=== PATIENT | male | born 1955 | race African-American/Black ===

== ENCOUNTER 2021-02-19 17:51 | Emergency (ER) | payer MEDICAID ==
[~2021-02-19] VITALS: Ht 167.6 cm; Wt 98.6 kg
[2021-02-19] MEDS ORDERED: NO HOME MEDS (21:11)
[2021-02-19 21:34] LABS: BASOPHILS % (AUTO) 0.6 % (0-1); EOSINOPHILS # (AUTO) 0.1 X10'3 (0-0.9); EOSINOPHILS % (AUTO) 1.3 % (0-6); HEMATOCRIT 43.9 % (42.0-52.0); HEMOGLOBIN 14.7 g/dl (14.0-17.9); LYMPHOCYTES # (AUTO) 1.2 X10'3 (1.1-4.8); LYMPHOCYTES % (AUTO) 28.2 % (21-51); MEAN CORPUSCULAR HEMOGLOBIN 29.5 PG (27.0-31.0); MEAN CORPUSCULAR HGB CONC 33.6 g/dL (33.0-36.5); MEAN CORPUSCULAR VOLUME 87.7 FL (78-98); MEAN PLATELET VOLUME 8.2 FL (7.4-10.4); MONOCYTES # (AUTO) 0.6 X10'3 (0-0.9); MONOCYTES % (AUTO) 13.9 % (2-12); NEUTROPHILS # (AUTO) 2.4 X10'3 (1.8-7.7); PLATELET COUNT 359 X10'3 (140-440); RED CELL DISTRIBUTION WIDTH 13.8 % (11.5-14.5); WHITE BLOOD COUNT 4.2 X10'3 (4.5-11.0)
[2021-02-19 21:45] LABS: ANION GAP 10 (8-16); BLOOD UREA NITROGEN 12 MG/DL (7-18); BUN/CREATININE RATIO 10.9 (5.4-32.0); CHLORIDE 102 MMOL/L (99-107); GLUCOSE 108 MG/DL (70-104); POTASSIUM 3.9 MMOL/L (3.5-5.1); SODIUM 139 MMOL/L (135-145); TOTAL CARBON DIOXIDE 26.7 MMOL/L (24-32)
[2021-02-19 21:46] LABS: ALANINE AMINOTRANSFERASE 33 U/L (12-78); ALBUMIN 3.9 G/DL (3.4-5.0); ALKALINE PHOSPHATASE 100 IU/L (46-116); ASPARTATE AMINO TRANSFERASE 29 U/L (10-37); BILIRUBIN,TOTAL 0.8 MG/DL (0.1-1.0); CALCIUM 9.5 MG/DL (8.5-10.1); TOTAL PROTEIN 7.8 G/DL (6.4-8.2); eGFR 67 ML/MIN
[2021-02-19 21:55] LABS: ETHANOL < 0.010 GM/DL (0.0-0.010)
--- NOTE | 2021-02-20 03:13 | NUR ---
pt appears to be sleeping on [facility]
[2021-02-20 13:22] LABS: URINE AMPHETAMINE SCREEN POSITIVE (Neg); URINE BARBITUATE SCREEN NEGATIVE (Neg); URINE BENZODIAZEPINES SCREEN NEGATIVE (Neg); URINE CANNABINOID SCREEN NEGATIVE (Neg); URINE COCAINE SCREEN NEGATIVE (Neg); URINE METHADONE SCREEN NEGATIVE (Neg); URINE OPIATE SCREEN NEGATIVE (Neg); URINE PHENCYCLIDINE SCREEN NEGATIVE (Neg)
[2021-02-20 13:24] LABS: CLARITY,URINE SLIGHTLY CLOUDY (Clear); COLOR,URINE YELLOW (Yellow); GLUCOSE, URINE NEGATIVE (Neg); KETONES,URINE TRACE mg/dl (Neg); LEUKOCYTE ESTERASE ,URINE NEGATIVE (Neg); NITRITES, URINE NEGATIVE (Neg); OCCULT BLOOD,URINE NEGATIVE (Neg); PH,URINE 5.5 (4.8-8.0); PROTEIN,URINE TRACE mg/dl (Neg); UROBILINOGEN,URINE 0.2 E.U/dL (0.2-1.0)
[2021-02-20 13:42] LABS: UA COLLECTION TYPE VOIDED
[2021-02-20 13:45] LABS: MUCUS STRANDS MANY /LPF (Neg); SPERM MANY /HPF (NEGATIVE); SQUAMOUS EPITHELIAL CELL,UR FEW /LPF (FEW)
[2021-02-20 13:46] LABS: BACTERIA,URINE FEW /HPF (Neg); CAL OXALATE CRYSTALS FEW /HPF (NEGATIVE)
[2021-02-20 13:47] LABS: RBC,URINE 0-2 /HPF (0-2); WBC,URINE 0-4 /HPF (0-4)
[2021-02-20 14:35] VITALS: BP 170/90
--- NOTE | 2021-02-20 16:10 | NUR ---
[facility] EVAL AT BEDSIDE.
--- NOTE | 2021-02-20 17:32 | NUR ---
CALLED [facility] TO [facility] FOR PATIENT 1 HR WAIT TIME .
== END 2021-02-20 18:15 | disposition home or self-care (01) ==
LOC: ER 17:52
DX: F79 Unspecified intellectual disabilities (principal); Z20.822 Contact with and (suspected) exposure to COVID-19; F60.0 Paranoid personality disorder; F22 Delusional disorders; F15.90 Other stimulant use, unspecified, uncomplicated; F32.9 Major depressive disorder, single episode, unspecified; Z59.00 Homelessness unspecified
CPT/HCPCS: 36415; 80053; 80305; 80320; 81001; 84443; 85025; 87635; 99284; C9803

== ENCOUNTER 2021-03-01 11:31 | Emergency (ER) | payer MEDICAID ==
[~2021-03-01] VITALS: Ht 167.6 cm; Wt 100.0 kg
[~2021-03-01 11:31] MED LIST: NO HOME MEDS
[2021-03-01] MEDS ORDERED: LORazepam 1 MG tablet PO ONE ×2 (13:30→23:30)
--- NOTE | 2021-03-01 14:00 | NUR ---
Patient was brought in by EMS, triaged, then brought to bed 26 in overflow. The patient endorses audible hallucinations, paranoia, he believes people are trying to kill him. Patient denies H/I or S/I. Patient is from the [facility].
[2021-03-01 14:18] LABS: BASOPHILS % (AUTO) 0.5 % (0-1); EOSINOPHILS % (AUTO) 0.1 % (0-6); HEMATOCRIT 44.6 % (42.0-52.0); HEMOGLOBIN 15.1 g/dl (14.0-17.9); LYMPHOCYTES # (AUTO) 0.9 X10'3 (1.1-4.8); LYMPHOCYTES % (AUTO) 12.1 % (21-51); MEAN CORPUSCULAR HEMOGLOBIN 29.7 PG (27.0-31.0); MEAN CORPUSCULAR HGB CONC 33.8 g/dL (33.0-36.5); MEAN CORPUSCULAR VOLUME 87.9 FL (78-98); MEAN PLATELET VOLUME 8.6 FL (7.4-10.4); MONOCYTES # (AUTO) 0.9 X10'3 (0-0.9); MONOCYTES % (AUTO) 11.3 % (2-12); NEUTROPHILS # (AUTO) 5.9 X10'3 (1.8-7.7); PLATELET COUNT 294 X10'3 (140-440); RED BLOOD COUNT 5.07 X10'6 (4.70-6.10); RED CELL DISTRIBUTION WIDTH 13.7 % (11.5-14.5); WHITE BLOOD COUNT 7.7 X10'3 (4.5-11.0)
[2021-03-01 14:46] LABS: ALANINE AMINOTRANSFERASE 22 U/L (12-78); ALBUMIN 3.8 G/DL (3.4-5.0); ALBUMIN/GLOBULIN RATIO 0.9 (1.1-1.5); ALKALINE PHOSPHATASE 113 IU/L (46-116); ANION GAP 9 (8-16); ASPARTATE AMINO TRANSFERASE 24 U/L (10-37); BLOOD UREA NITROGEN 11 MG/DL (7-18); BUN/CREATININE RATIO 9.9 (5.4-32.0); CALCIUM 9.3 MG/DL (8.5-10.1); CHLORIDE 107 MMOL/L (99-107); CREATININE 1.11 MG/DL (0.60-1.10); GLUCOSE 102 MG/DL (70-104); POTASSIUM 4.2 MMOL/L (3.5-5.1); SODIUM 143 MMOL/L (135-145); TOTAL CARBON DIOXIDE 26.7 MMOL/L (24-32); TOTAL PROTEIN 8.1 G/DL (6.4-8.2); eGFR 81 ML/MIN
[2021-03-01 14:55] LABS: ETHANOL < 0.010 GM/DL (0.0-0.010)
[2021-03-01 14:58] LABS: CLARITY,URINE CLEAR (Clear); COLOR,URINE YELLOW (Yellow); GLUCOSE, URINE NEGATIVE (Neg); KETONES,URINE NEGATIVE (Neg); LEUKOCYTE ESTERASE ,URINE NEGATIVE (Neg); NITRITES, URINE NEGATIVE (Neg); OCCULT BLOOD,URINE TRACE-INTACT (Neg); PROTEIN,URINE TRACE mg/dl (Neg); UROBILINOGEN,URINE 0.2 E.U/dL (0.2-1.0)
[2021-03-01 15:02] LABS: UA COLLECTION TYPE CLN CATCH MIDSTREAM
[2021-03-01 15:03] LABS: BACTERIA,URINE NONE SEEN /HPF (Neg); MUCUS STRANDS FEW /LPF (Neg); SQUAMOUS EPITHELIAL CELL,UR NONE SEEN /LPF (FEW); WBC,URINE 0-4 /HPF (0-4)
[2021-03-01 15:04] LABS: SPERM FEW /HPF (NEGATIVE)
[2021-03-01 15:11] LABS: URINE AMPHETAMINE SCREEN POSITIVE (Neg); URINE BARBITUATE SCREEN NEGATIVE (Neg); URINE BENZODIAZEPINES SCREEN NEGATIVE (Neg); URINE CANNABINOID SCREEN NEGATIVE (Neg); URINE COCAINE SCREEN NEGATIVE (Neg); URINE METHADONE SCREEN NEGATIVE (Neg); URINE OPIATE SCREEN NEGATIVE (Neg); URINE PHENCYCLIDINE SCREEN NEGATIVE (Neg)
--- NOTE | 2021-03-01 15:34 | NUR ---
Patient approaches RN station and states "the people are almost here" and gestures toward the vents in the ceiling. Patient verbally reassured but declines food and rest.
--- NOTE | 2021-03-01 16:01 | NUR ---
Packet has been faxed to [facility].
[2021-03-01] MEDS ORDERED: GABA-534 PO (16:17)
[2021-03-01] MEDS ORDERED: BICT1TAB (16:17)
[2021-03-01] MEDS ORDERED: METO25TA6 (16:17)
[2021-03-01] MEDS ORDERED: FLO0.4C PO (16:17)
--- NOTE | 2021-03-01 16:23 | NUR ---
Patient still endorses audible hallucinations. He states he can hear people in the vents, they are trying to kill him. Patient admits to meth use this am.
--- NOTE | 2021-03-01 17:13 | NUR ---
Patient continues to stand near the nurses station. He exhibit paranoia still, he states he is afraid to go to where his bed is at.
[2021-03-01] MEDS ORDERED: OLANZapine 2.5MG tablet PO SCH ×2 (18:15→23:30)
[2021-03-01] MEDS ORDERED: metoprolol tartrate 50mg tablet PO ONE (18:15)
[2021-03-01] MEDS ORDERED: metoprolol tartrate 25mg tablet PO ONE (18:25)
--- NOTE | 2021-03-01 18:39 | NUR ---
The patient is sitting up by the nursing station and is very hypervigilant and guarded. He is refusing to return to his bed because he believes that people are coming out of the vents. He also is making paranoid statements that he believes people are wanting to kill him. He refused to use another bed and stated, "that bed has a spirit" He is very distracted by internal stimuli. He refused his dinner but denied that he feels his food is poisoned or contaminated in any way. His BP was elevated and spoke with PA regarding his BP and level of paranoia. Medications ordered and medication education provided to the patient.
--- NOTE | 2021-03-01 20:12 | NUR ---
The patient continues to be paranoid but appears less so. He is now eating and presents as less hypervigilant.
--- NOTE | 2021-03-01 22:18 | NUR ---
The patient is resting on the bed by the nursing station but he is awake
[2021-03-01] MEDS ORDERED: OLANZapine 2.5MG tablet PO ONE (23:30)
--- NOTE | 2021-03-02 00:01 | NUR ---
The patient has not been able to sleep. He is tossing and turning on his bed. He occasionally can be heard whispering to himself. MD made aware of patient continued psychotic symptoms and inability to sleep and orders received.
--- NOTE | 2021-03-02 01:11 | NUR ---
The patient is awake and at times whispering to himself
--- NOTE | 2021-03-02 02:37 | NUR ---
The patient continues to be talking to himself
--- NOTE | 2021-03-02 04:04 | NUR ---
The patient up to use the bathroom and now back to bed.
--- NOTE | 2021-03-02 06:20 | NUR ---
PATIENT RECEIVED SLEEPING ON HIS RIGHT SIDE IN BED THIS MORNING. RESPIRATIONS EVEN, UNLABORED. NO S/S OF DISTRESS. WILL CONTINUE TO MONITOR.
--- NOTE | 2021-03-02 08:30 | NUR ---
PATIENT APPROACHED THIS CLINICAL DATA MANAGEMENT DIRECTOR ENDORSING THAT THERE IS A KILLER HALF WAY IN THE WALL HAVING A CONVERSATION. PATIENT PRESENTS PARANOID OF RETURNING TO HIS ROOM. HE IS NOTED SITTING IN A CHAIR IN THE HALLWAY. BREAKFAST TRAY GIVEN. NO CHANGE AT THIS TIME.
--- NOTE | 2021-03-02 10:25 | NUR ---
PATIENT CONTINUES SITTING IN CHAIR IN THE HALLWAY AT THIS TIME. HE REFUSES TO RETURN TO HIS ROOM. HE IS QUIET AND APPROPRIATE. NO S/S OF DISTRESS.
--- NOTE | 2021-03-02 12:30 | NUR ---
PATIENT WAS OBSERVED AMBULATING WITH A 4WW TO THE BATHROOM WITH A SLIGHT LEFT-SIDED LIMP. PATIENT CONTINUES TO EXHIBIT PARANOIA, AFRAID TO RETURN TO HIS ROOM. HE CONTINUES QUIETLY SITTING IN THE HALLWAY. NO CHANGES AT THIS TIME.
--- NOTE | 2021-03-02 14:35 | NUR ---
PATIENT CONTINUES TO ENDORSE AUDITORY HALLUCINATIONS OF VOICES COMING THROUGH THE CEILING VENTS. HE ENDORSED HAVING ISSUES WITH HIS LEFT HIP SINCE 2011, STATING THAT HE NEEDS A TOTAL HIP REPLACEMENT. PATIENT SITTING IN THE HALLWAY WITH NO COMPLAINTS NOTED OR S/S OF DISTRESS.
--- NOTE | 2021-03-02 16:35 | NUR ---
PATIENT ASKED THIS CLINICAL STAFF EDUCATOR TO MOVE HIS BED TO THE FAR CORNER OF HIS ROOM TO BE AWAY FROM THE CEILING VENT. HE CONTINUES TO PRESENT WITH PARANOIA, ENDORSING THAT GANG MEMBERS ARE HERE IN THE HOSPITAL. HE WAS OBSERVED AMBULATING TO THE BATHROOM AND BACK TO HIS ROOM WITH A 4WW. PATIENT OBSERVED STARING AT THE VENT IN THE CEILING. NO S/S OF DISTRESS. WILL CONTINUE TO MONITOR.
--- NOTE | 2021-03-02 17:05 | NUR ---
ATTEMPTED TO CONTACT PATIENTS PRIMARY PHARMACY, [facility] TO RETRIEVE MED RECONCILIATION. FACILITY IS CLOSED ON THE WEEKENDS. WILL BE OPEN ON 03/03/21. PHONE NUMBER . PATIENT ENDORSED THAT HE TAKES BIKTARVY QDAY FOR HIV SUPPRESSION. UNABLE TO VERIFY WITH PATIENTS PHARMACY D/T CLOSED ON WEEKENDS. WILL NOTIFY ONCOMING RN.
[2021-03-02] MEDS ORDERED: emtricitabine/tenofovir 200mg/300mg tablet PO SCH ×2 (17:26→17:41)
[2021-03-02] MEDS: raltegravir 400mg tablet PO SCH ×2 (18:07→20:44)
[2021-03-02] MEDS: emtricitabine/tenofovir 200mg/300mg tablet PO SCH (18:08)
--- NOTE | 2021-03-02 18:38 | NUR ---
dfPatient is sleeping on his left side in bed. No distress noted. Q15 minute rounding for patient safety, in view from nurses station.
--- NOTE | 2021-03-02 19:39 | NUR ---
Patient is awake in bed, no distress.
[2021-03-02] MEDS ORDERED: metoprolol tartrate 50mg tablet PO SCH (20:00)
--- NOTE | 2021-03-02 20:03 | NUR ---
Patient remains sleeping. No distress noted.
[2021-03-02] MEDS: gabapentin 100mg capsule PO SCH (20:44)
--- NOTE | 2021-03-02 22:13 | NUR ---
Patient is sleeping on his left side. He talks in his sleep swearing.
--- NOTE | 2021-03-02 23:34 | NUR ---
Patient is sleeping, no distress.
--- NOTE | 2021-03-03 02:06 | NUR ---
Patient is sleeping quietly. No distress.
--- NOTE | 2021-03-03 03:46 | NUR ---
Patient continues to talk in his sleep, cussing at others.
--- NOTE | 2021-03-03 05:53 | NUR ---
Patient sleeping quietly. No distress noted.
--- NOTE | 2021-03-03 06:20 | NUR ---
PATIENT RECEIVED SLEEPING SUPINE IN BED UPON CHANGE OF SHIFT. RESPIRATIONS EVEN, UNLABORED. NO S/S OF DISTRESS. WILL CONTINUE TO MONITOR.
--- NOTE | 2021-03-03 08:30 | NUR ---
PATIENT OBSERVED SITTING QUIETLY IN BED EATING BREAKFAST AT THIS TIME. HE RECEIVED HIS MEDICATION WITH NO DIFFICULTY AND WAS COOPERATIVE WITH ASSESSMENT. NO CHANGE NOTED AT THIS TIME.
[2021-03-03] MEDS: gabapentin 100mg capsule PO SCH ×2 (09:17→20:18)
[2021-03-03] MEDS: raltegravir 400mg tablet PO SCH ×2 (09:17→20:22)
[2021-03-03] MEDS: emtricitabine/tenofovir 200mg/300mg tablet PO SCH (09:17)
[2021-03-03] MEDS ORDERED: metoprolol tartrate 50mg tablet PO ONE (09:20)
[2021-03-03] MEDS ORDERED: metoprolol tartrate 25mg tablet PO ONE (09:20)
--- NOTE | 2021-03-03 10:25 | NUR ---
PATIENT CONTINUES SLEEPING IN BED AT THIS TIME LYING ON HIS RIGHT SIDE. RESPIRATIONS EVEN, UNLABORED. NO S/S OF DISTRESS NOTED. WILL CONTINUE TO MONITOR.
--- NOTE | 2021-03-03 12:30 | NUR ---
PATIENT SLEEPING IN HIS ROOM AT THIS TIME. NO S/S OF DISTRESS OR CHANGES NOTED.
--- NOTE | 2021-03-03 14:25 | NUR ---
PATIENT NOTED TO BE SLEEPING ON HIS LEFT SIDE IN BED. RESPIRATIONS EVEN, UNLABORED. NO S/S OF DISTRESS. WILL CONTINUE TO MONITOR.
--- NOTE | 2021-03-03 16:30 | NUR ---
PATIENT OBSERVED AMBULATING TO THE RESTROOM WITH HIS 4WW. HE CONTINUES TO PRESENT POLITE AND CALM THROUGHOUT THE DAY. NO S/S OF RESPONDING TO IS. PATIENT RETREATED BACK TO HIS ROOM WHERE HE IS QUIETLY RESTING AT THIS TIME. NO COMPLAINTS NOTED.
--- NOTE | 2021-03-03 18:44 | NUR ---
Patient is sleeping on his left side. No distress. Frequent rounding for patient safety.
[2021-03-03] MEDS: metoprolol tartrate 25mg tablet PO SCH (20:19)
--- NOTE | 2021-03-03 20:33 | NUR ---
Patient awoke, he recognized this automobile service writer from previous noc shift. Patient complied with taking his medications. He immediately returned to sleep.
[2021-03-03] MEDS ORDERED: tamsulosin 0.4mg capsule PO SCH (21:00)
--- NOTE | 2021-03-03 23:00 | NUR ---
Patient is sleeping quietly in a supine position. Frequent rounding for patient safety.
--- NOTE | 2021-03-04 01:18 | NUR ---
Patient sleeping on right side. No distress noted.
--- NOTE | 2021-03-04 03:08 | NUR ---
Patient sleeps quietly, no distress.
--- NOTE | 2021-03-04 03:10 | NUR ---
Conchis houston in [facility] - 03/04/21 at 0310 by CHRISSY Patient in supine position, sleeping quietly.
--- NOTE | 2021-03-04 06:20 | NUR ---
PATIENT OBSERVED QUIETLY SLEEPING ON HIS LEFT SIDE AT SHIFT CHANGE. RESPIRATIONS EVEN, UNLABORED. NO S/S OF DISTRESS.
[2021-03-04 08:20] VITALS: BP_DIAS 90
[2021-03-04] MEDS: emtricitabine/tenofovir 200mg/300mg tablet PO SCH (08:28)
[2021-03-04 08:29] VITALS: BP_SYST 144
[2021-03-04] MEDS: metoprolol tartrate 25mg tablet PO SCH (08:29)
[2021-03-04] MEDS: gabapentin 100mg capsule PO SCH (08:29)
[2021-03-04] MEDS: raltegravir 400mg tablet PO SCH (08:29)
--- NOTE | 2021-03-04 08:30 | NUR ---
PATIENT AWOKEN TO HAVE VITAL SIGNS ASSESSED THIS MORNING. RTN MEDICATION GIVEN WITH NO DIFFICULTY. PATIENT WAS COOPERATIVE WITH ASSESSMENT. PATIENT CONTINUES TO PRESENT WITH PARANOIA OF BEING FOLLOWED. HE ENDORSED TO THIS PEDIATRIC DIETICIAN THAT HE IS STILL BEING FOLLOWED BUT FEELS SAFER BEING IN THE HOSPITAL. PATIENT REASSURED BY STAFF. NO S/S OF DISTRESS OR COMPLAINTS NOTED.
--- NOTE | 2021-03-04 09:58 | NUR ---
Met with patient in regards to substance use and to see if patient wanted resources for treatment options. Patient would like resources for outpatient services because he is not sure if he wants to stay in [facility]. I gave patient [facility] number and a resource guide. I also gave patient my card so he can call with any questions if needed.
--- NOTE | 2021-03-04 10:35 | NUR ---
PATIENT OBSERVED SLEEPING IN BED AT THIS TIME. NO COMPLAINTS OR S/S OF DISTRESS.
== END 2021-03-04 12:55 | disposition home or self-care (01) ==
LOC: ER 11:31
DX: F23 Brief psychotic disorder (principal); Z20.822 Contact with and (suspected) exposure to COVID-19; F22 Delusional disorders; F32.9 Major depressive disorder, single episode, unspecified; F15.90 Other stimulant use, unspecified, uncomplicated; Z59.00 Homelessness unspecified; Z88.1 Allergy status to other antibiotic agents; Z88.8 Allergy status to other drugs, medicaments and biological substances; Z79.899 Other long term (current) drug therapy
CPT/HCPCS: 36415; 80053; 80305; 80320; 81001; 84443; 85025; 87635; 99285; C9803